=== PATIENT | female | born 1955 | race Two or more races ===

== ENCOUNTER 2023-10-17 22:05 | Emergency (ER) | payer BC, OTHER ==
[~2023-10-17] VITALS: Ht 152.4 cm; Wt 45.0 kg
[2023-10-17 22:50] VITALS: TEMP 98.5
[2023-10-17 23:00] VITALS: PULSE 62; RESP 16; O2SAT 93
[2023-10-17 23:15] LABS: Basophils # (auto) 0 10 ^3/uL (0-0.2); Basophils % (auto) 0.4 % (0.0-2.0); Eosinophils # (auto) 0 10 ^3/uL (0-0.8); Hematocrit 44.4 % (36.0-46.0); Lymphocytes # (auto) 1.1 10 ^3/uL (0.4-5.4); Lymphocytes % (auto) 12.6 % (10.0-50.0); Mean Corpuscular Hemoglobin 31.3 pg (28.0-32.0); Mean Corpuscular Hgb Conc. 33.8 g/dL (32.0-36.0); Mean Corpuscular Volume 92.4 fL (80.0-100.0); Monocytes # (auto) 0.3 10 ^3/uL (0-1.3); Monocytes % (auto) 3.6 % (0.0-12.0); Neutrophils # (auto) 7.2 10 ^3/uL (1.6-8.6); Neutrophils % (auto) 83.4 % (37.0-80.0); Red Cell Distribution Width 14.8 % (11.8-14.3); White Blood Cell 8.7 10^3/uL (4.4-10.8)
[2023-10-17 23:18] LABS: Chloride 97 mmol/L (98-107); Sodium 134 mmol/L (136-145)
[2023-10-17 23:19] LABS: Anion Gap 11 (5-15); Carbon Dioxide 26 mmol/L (20-30)
[2023-10-17 23:24] LABS: Glucose 158 mg/dL (74-106)
[2023-10-17 23:25] LABS: BUN/Creatinine Ratio 17.9 (10.0-20.0); Blood Urea Nitrogen 12 mg/dL (9-23); Lipase 33 U/L (12-53)
[2023-10-17] MEDS: DICYCLOMINE HCL (10MG/ML) 2 ML AMPULE IM ONE (23:26)
[2023-10-17] MEDS: ONDANSETRON HCL 4 MG/2 ML VIAL IM ONE (23:26)
[2023-10-18] MEDS ORDERED: DICY10CA PO (00:01)
[2023-10-18] MEDS ORDERED: ZOFR4T PO (00:01)
[2023-10-18] MEDS: cloNIDine HCL 0.1 MG TAB PO ONE (00:42)
[2023-10-18] MEDS ORDERED: CLON0.2T PO (01:44)
[2023-10-18 03:55] VITALS: BP 139/79; PULSE 56; RESP 20; O2SAT 95
== END 2023-10-18 04:00 | disposition home or self-care (01) ==
LOC: ER 22:05
DX: A05.9 Bacterial foodborne intoxication, unspecified (principal); R03.0 Elevated blood-pressure reading, without diagnosis of hypertension; Z79.899 Other long term (current) drug therapy
CPT/HCPCS: 36415; 80048; 83690; 85025; 96372; 99284; J0500; J2405